=== PATIENT | male | born 1960 | race Caucasian/White ===

== ENCOUNTER 2018-04-27 11:21 | Day surgery (SDC) | payer OTHER ==
[~2018-04-27] VITALS: Ht 193 cm; Wt 103.0 kg
[~2018-04-27 11:21] MED LIST: ASCO250T2 PO; BUPIVACAINE/PF 0.5% ONE; ECHI125T PO; EPINEPHRINE 1 MG/ML, 1ML ONE; IBUP-1222 PO; SENN-99 PO; ZINC50TA3 PO
[2018-04-27 12:16] VITALS: BP 126/84
[2018-04-27] MEDS ORDERED: LACTATED RINGERS 1,000 ML IV SCH (12:24)
[2018-04-27] MEDS ORDERED: NO MEDS (12:47)
[2018-04-27] MEDS ORDERED: FENTANYL PF 250 MCG/5ML ONE (12:52)
[2018-04-27] MEDS ORDERED: MIDAZOLAM 1 MG/ML, 2ML ONE (12:52)
[2018-04-27] MEDS ORDERED: NEOSTIGMINE 1 MG/ML, 10ML ONE (13:05)
[2018-04-27] MEDS ORDERED: DEXAMETHASONE 4 MG/ML, 1ML ONE (13:05)
[2018-04-27] MEDS ORDERED: CEFAZOLIN 1,000 MG ONE (13:05)
[2018-04-27] MEDS ORDERED: ONDANSETRON 2MG/ML, 2ML ONE (13:05)
[2018-04-27] MEDS ORDERED: PROPOFOL 10 MG/ML, 20ML ONE (13:05)
[2018-04-27] MEDS ORDERED: ROCURONIUM 10 MG/ML,10ML ONE (13:05)
[2018-04-27] MEDS ORDERED: GLYCOPYRROLATE 0.2MG/1ML, 5ML ONE (13:05)
[2018-04-27] MEDS ORDERED: SUCCINYLCHOLINE 20 MG/ML, 10ML ONE (13:05)
[2018-04-27] MEDS ORDERED: MEPERIDINE/PF 25MG/0.5ML IVPush PRN (14:00)
[2018-04-27] MEDS ORDERED: MORPHINE SULFATE 4 MG/ML, 1ML IVPush PRN (14:00)
[2018-04-27] MEDS ORDERED: KETOROLAC 30 MG/1 ML IV PRN (14:00)
[2018-04-27] MEDS ORDERED: ACETAMINOPHEN 325 MG TABLET PO PRN (14:00)
[2018-04-27] MEDS ORDERED: ALBUTEROL SULFATE 2.5 MG/3 ML NPPB PRN (14:00)
[2018-04-27] MEDS ORDERED: PROMETHAZINE 25 MG/ML, 1ML IV PRN (14:00)
[2018-04-27] MEDS ORDERED: OXYcodone 5 MG/5 ML ORAL.SOL UDC PO PRN ×2 (14:00→14:30)
[2018-04-27] MEDS ORDERED: FENTANYL PF 100 MCG/2ML ONE (14:09)
[2018-04-27] MEDS ORDERED: OXYcodone 5 MG/5 ML ORAL.SOL UDC ONE (14:09)
[2018-04-27] MEDS: FENTANYL PF 100 MCG/2ML IV PRN ×2 (14:15→14:20)
[2018-04-27] MEDS ORDERED: DIPHENHYDRAMINE 50 MG/ML, 1ML IVPush PRN (14:30)
[2018-04-27] MEDS ORDERED: ONDANSETRON 2MG/ML, 2ML IVPush PRN (14:30)
== END 2018-04-27 16:50 | disposition home or self-care (01) ==
LOC: OR 11:21
PROVIDERS: ATTEND Surgery
DX: D36.10 Benign neoplasm of peripheral nerves and autonomic nervous system, unspecified (principal); Z98.890 Other specified postprocedural states; Z72.89 Other problems related to lifestyle; Z87.891 Personal history of nicotine dependence
CPT/HCPCS: 64784; 88304; J0171; J0330; J0690; J1100; J2250; J2405; J2704; J2710; J3010; J3490; J7120